=== PATIENT | male | born 1945 | race Two or more races ===

== ENCOUNTER → 2016-04-06 | Outpatient (REF) | payer MEDICARE ==
[2016-04-07 14:11] LABS: PSA % FREE 20.7 % (.); PSA FREE 0.91 ng/mL; PSA TOTAL 4.4 ng/mL (0.0-4.0)
== END ==
LOC: M SFHCCLAY 07:03
PROVIDERS: ATTEND Urology
DX: R97.20 Elevated prostate specific antigen [PSA] (principal)

== ENCOUNTER → 2016-09-13 | Outpatient (REF) | payer MEDICARE ==
[2016-09-13 11:46] LABS: ALBUMIN 3.8 GM/DL (3.2-5.2); ALBUMIN/GLOBULIN RATIO 1.27 (1.00-1.93); ALKALINE PHOSPHATASE 78 U/L (45-117); ALT/SGPT 30 U/L (12-78); ANION GAP 7 MEQ/L (8-16); AST/SGOT 16 U/L (15-37); BILIRUBIN,TOTAL 0.7 MG/DL (0.2-1.0); BLOOD UREA NITROGEN 20 MG/DL (7-18); CALCIUM LEVEL 8.6 MG/DL (8.8-10.2); CARBON DIOXIDE LEVEL 26 MEQ/L (21-32); CHLORIDE LEVEL 106 MEQ/L (98-107); CHOLESTEROL LEVEL 200 MG/DL (<200); CREATININE FOR GFR 1.04 MG/DL (0.70-1.30); GLOMERULAR FILTRATION RATE > 60.0 (>42); GLUCOSE, FASTING 116 MG/DL (83-110); POTASSIUM SERUM 3.8 MEQ/L (3.5-5.1); SODIUM LEVEL 139 MEQ/L (136-145); TOTAL PROTEIN 6.8 GM/DL (6.4-8.2); TRIGLYCERIDES LEVEL 130 MG/DL (<150)
== END ==
LOC: M SFHCCLAY 07:02
PROVIDERS: ATTEND Family Medicine
DX: I10 Essential (primary) hypertension (principal)

== ENCOUNTER → 2017-05-03 | Outpatient (CLI) | payer MEDICARE | LOC: M CLY 10:03 | DX: M25.711 Osteophyte, right shoulder (principal); M12.88 Other specific arthropathies, not elsewhere classified, other specified site; M25.511 Pain in right shoulder | CPT/HCPCS: 73030 ==

== ENCOUNTER → 2017-05-03 | Outpatient (REF) | payer MEDICARE ==
[2017-05-03 17:54] LABS: ALBUMIN 4.2 GM/DL (3.2-5.2); ALBUMIN/GLOBULIN RATIO 1.27 (1.00-1.93); ALKALINE PHOSPHATASE 74 U/L (45-117); ALT/SGPT 24 U/L (12-78); ANION GAP 7 MEQ/L (8-16); AST/SGOT 13 U/L (7-37); BILIRUBIN,TOTAL 0.7 MG/DL (0.2-1.0); BLOOD UREA NITROGEN 18 MG/DL (7-18); CALCIUM LEVEL 9.3 MG/DL (8.8-10.2); CARBON DIOXIDE LEVEL 28 MEQ/L (21-32); CHLORIDE LEVEL 105 MEQ/L (98-107); CHOLESTEROL LEVEL 249 MG/DL (<200); CHOLESTEROL RISK RATIO 2.417 (<5); CREATININE FOR GFR 1.14 MG/DL (0.70-1.30); GLOMERULAR FILTRATION RATE > 60.0 (>42); GLUCOSE, FASTING 123 MG/DL (70-100); HDL CHOLESTEROL 103 MG/DL (>40); LDL CHOLESTEROL 127.2 MG/DL (<100); NON-HDL-C 146 MG/DL; PROSTATIC SPECIFIC AG MONITOR 7.13 NG/ML (< 4.0); SODIUM LEVEL 140 MEQ/L (136-145); TOTAL PROTEIN 7.5 GM/DL (6.4-8.2); TRIGLYCERIDES LEVEL 94 MG/DL (<150)
[2017-05-03 19:12] LABS: ESTIMATED AVERAGE GLUCOSE 128 MG/DL (60-110); HEMOGLOBIN A1c 6.1 %
== END ==
LOC: M SFHCCLAY 09:52
DX: I10 Essential (primary) hypertension (principal); R97.20 Elevated prostate specific antigen [PSA]; R73.01 Impaired fasting glucose
CPT/HCPCS: 84443

== ENCOUNTER → 2017-05-16 | Outpatient (CLI) | payer MEDICARE | LOC: M RAD 09:17 | DX: M25.511 Pain in right shoulder (principal); M79.621 Pain in right upper arm | CPT/HCPCS: 73221 ==

== ENCOUNTER → 2017-07-17 | Outpatient (REF) | payer MEDICARE | LOC: M SMT 18:08 | DX: R97.20 Elevated prostate specific antigen [PSA] (principal) | CPT/HCPCS: 84154 ==

== ENCOUNTER → 2017-07-17 | Outpatient (CLI) | payer MEDICARE | LOC: M CLY 11:13 | DX: M25.561 Pain in right knee (principal); M50.30 Other cervical disc degeneration, unspecified cervical region; R93.7 Abnormal findings on diagnostic imaging of other parts of musculoskeletal system | CPT/HCPCS: 72050; 84154 ==

== ENCOUNTER → 2018-01-02 | Outpatient (CLI) | payer MEDICARE ==
[2018-01-02 12:57] LABS: ESTIMATED AVERAGE GLUCOSE 120 MG/DL (60-110); HEMOGLOBIN A1c 5.8 %
[2018-01-02 13:04] LABS: ALBUMIN 3.9 GM/DL (3.2-5.2); ALBUMIN/GLOBULIN RATIO 1.34 (1.00-1.93); ALKALINE PHOSPHATASE 78 U/L (45-117); ALT/SGPT 22 U/L (12-78); ANION GAP 7 MEQ/L (8-16); AST/SGOT 12 U/L (7-37); BILIRUBIN,TOTAL 0.7 MG/DL (0.2-1.0); BLOOD UREA NITROGEN 14 MG/DL (7-18); CALCIUM LEVEL 8.9 MG/DL (8.8-10.2); CARBON DIOXIDE LEVEL 29 MEQ/L (21-32); CHLORIDE LEVEL 106 MEQ/L (98-107); CHOLESTEROL LEVEL 211 MG/DL (<200); CHOLESTEROL RISK RATIO 2.705 (<5); CREATININE FOR GFR 1.05 MG/DL (0.70-1.30); GLOMERULAR FILTRATION RATE > 60.0 (>42); GLUCOSE, FASTING 125 MG/DL (70-100); HDL CHOLESTEROL 78 MG/DL (>40); LDL CHOLESTEROL 116 MG/DL (<100); NON-HDL-C 133 MG/DL; POTASSIUM SERUM 4.1 MEQ/L (3.5-5.1); SODIUM LEVEL 142 MEQ/L (136-145); TOTAL PROTEIN 6.8 GM/DL (6.4-8.2); TRIGLYCERIDES LEVEL 84 MG/DL (<150)
[2018-01-04 00:08] LABS: PSA % FREE 17.1 % (.); PSA FREE 1.18 ng/mL; PSA TOTAL 6.9 ng/mL (0.0-4.0)
== END ==
LOC: M LAB 11:26
DX: R73.01 Impaired fasting glucose (principal); I10 Essential (primary) hypertension; E78.2 Mixed hyperlipidemia; R97.20 Elevated prostate specific antigen [PSA]
CPT/HCPCS: 80053

== ENCOUNTER → 2018-06-13 | Outpatient (REF) | payer MEDICARE ==
[~2018-06-13] MED LIST: AMLO10TA5 PO; ASPI1TAB20 PO; FINA5TAB2 PO
[2018-06-13 18:13] LABS: HEMATOCRIT 45.3 % (42.0-52.0); HEMOGLOBIN 15.4 g/dl (13.5-17.5); MEAN CORPUSCULAR VOLUME 87.5 fl (80.0-96.0); RED BLOOD COUNT 5.18 10^6/uL (4.30-6.10); WHITE BLOOD COUNT 7.3 10^3/uL (4.0-10.0)
[2018-06-13 18:14] LABS: BASO # 0.1 10^3/uL (0.0-0.2); BASO % 0.8 % (0.0-1.0); EOS # 0.2 10^3/uL (0.0-0.50); LYMPH # 1.8 10^3/uL (1.5-4.5); LYMPH % 24.7 % (24.0-44.0); MEAN CORPUSCULAR HEMOGLOBIN 29.7 pg (27.0-33.0); MONO # 0.5 10^3/uL (0.0-0.8); MONO % 7.2 % (0.0-5.0); NEUTROPHILS # 4.8 10^3/uL (1.8-7.7); NEUTROPHILS % 65.2 % (36.0-66.0); PLATELET COUNT, AUTOMATED 238 10^3/uL (150-450)
[2018-06-13 18:43] LABS: ALBUMIN 4.3 GM/DL (3.2-5.2); ALT/SGPT 27 U/L (12-78); BILIRUBIN,TOTAL 0.5 MG/DL (0.2-1.0); BLOOD UREA NITROGEN 18 MG/DL (7-18); CALCIUM LEVEL 9.7 MG/DL (8.8-10.2); CARBON DIOXIDE LEVEL 26 MEQ/L (21-32); CHLORIDE LEVEL 106 MEQ/L (98-107); GLOMERULAR FILTRATION RATE > 60.0 (>42); GLUCOSE, FASTING 139 MG/DL (70-100); POTASSIUM SERUM 4.3 MEQ/L (3.5-5.1); SODIUM LEVEL 140 MEQ/L (136-145); TOTAL PROTEIN 7.3 GM/DL (6.4-8.2)
[2018-06-13 18:50] LABS: VITAMIN B12 LEVEL 498 PG/ML (247-911)
[2018-06-13 18:51] LABS: FOLATE 17.3 NG/ML (>5.4)
== END ==
LOC: M SFHCCLAY 11:08
PROVIDERS: ATTEND Family Medicine
DX: I10 Essential (primary) hypertension (principal); R20.0 Anesthesia of skin; R20.2 Paresthesia of skin; I73.9 Peripheral vascular disease, unspecified

== ENCOUNTER → 2018-06-23 | Outpatient (CLI) | payer MEDICARE ==
--- NOTE | 2018-06-23 14:11 | REP ---
BILATERAL LOWER EXTREMITY DUPLEX DOPPLER ARTERIAL EVALUATION: Real-time ultrasound evaluation and duplex Doppler interrogation of bilateral lower extremity arterial systems is performed. LAWSON on the right is 0.9 and left 1.1. Mild to moderate scattered atherosclerotic plaquing and narrowing is seen bilaterally. There is a more focal degree of moderate plaquing in the mid right superficial femoral artery with mild elevation of peak systolic velocity with similar findings in the distal left superficial femoral artery possibly indicating mild stenosis at these locations. Triphasic and biphasic waveforms are seen throughout the bilateral lower extremity arterial systems. Right Peak Left Peak Systolic Velocity Systolic velocity Common femoral artery 101.2 cm/s 112.6 cm/s Profunda 91.4 cm/s 97.6 cm/s Proximal SFA 116.2 cm/s 160.9 cm/s Mid SFA 132.3 cm/s 115.0 cm/s Distal SFA 114.5 cm/s 152.3 cm/s Popliteal 66.6 cm/s 72.9 cm/s Proximal JOY 41.8 cm/s 49.7 cm/s Tibial peroneal trunk 60.9 cm/s 62.6 cm/s Proximal MAIL MACHINE OPERATOR 44.0 cm/s 70.5 cm/s Distal MAIL MACHINE OPERATOR 74.3 cm/s 61.0 cm/s Distal JOY 18.3 cm/s 42.4 cm/s IMPRESSION: Mild to moderate plaquing and narrowing bilateral lower extremity arterial systems with suspected mild stenosis of the mid right superficial femoral artery and distal left superficial femoral artery. Electronically Signed by Gustavo Herrera MD 06/23/2018 05:42 P
== END ==
LOC: M RAD 11:19
PROVIDERS: ATTEND Family Medicine
DX: I73.9 Peripheral vascular disease, unspecified (principal)

== ENCOUNTER → 2018-06-24 | Outpatient (REF) | payer MEDICARE | LOC: M LAB REF 15:06 | PROVIDERS: ATTEND Surgery | DX: L72.3 Sebaceous cyst (principal) ==

== ENCOUNTER → 2018-10-20 | Outpatient (REF) | payer MEDICARE ==
[~2018-10-20] MED LIST changes: +ASPI-524 PO; -ASPI1TAB20 PO
[2018-10-20 16:45] LABS: BASO % 0.5 % (0.0-1.0); EOS # 0.3 10^3/uL (0.0-0.50); EOS % 4.2 % (0.0-3.0); HEMATOCRIT 44.2 % (42.0-52.0); LYMPH # 1.7 10^3/uL (1.5-4.5); LYMPH % 26.7 % (24.0-44.0); MEAN CORPUSCULAR HEMOGLOBIN 30.5 pg (27.0-33.0); MEAN CORPUSCULAR HGB CONC 33.9 g/dl (32.0-36.5); MONO # 0.6 10^3/uL (0.0-0.8); MONO % 8.8 % (0.0-5.0); NEUTROPHILS # 3.9 10^3/uL (1.8-7.7); NEUTROPHILS % 59.6 % (36.0-66.0); PLATELET COUNT, AUTOMATED 187 10^3/uL (150-450); RED BLOOD COUNT 4.91 10^6/uL (4.30-6.10); WHITE BLOOD COUNT 6.5 10^3/uL (4.0-10.0)
[2018-10-20 16:59] LABS: ALBUMIN 3.7 GM/DL (3.2-5.2); ALT/SGPT 25 U/L (12-78); BILIRUBIN,TOTAL 0.6 MG/DL (0.2-1.0); BLOOD UREA NITROGEN 16 MG/DL (7-18); CARBON DIOXIDE LEVEL 26 MEQ/L (21-32); CHLORIDE LEVEL 108 MEQ/L (98-107); CHOLESTEROL LEVEL 179 MG/DL (<200); CHOLESTEROL RISK RATIO 2.386 (<5); CREATININE FOR GFR 1.03 MG/DL (0.70-1.30); GLOMERULAR FILTRATION RATE > 60.0 (>42); GLUCOSE, FASTING 125 MG/DL (70-100); HDL CHOLESTEROL 75 MG/DL (>40); LDL CHOLESTEROL 87 MG/DL (<100); NON-HDL-C 104 MG/DL; PROSTATIC SPECIFIC AG MONITOR 8.25 NG/ML (< 4.00); SODIUM LEVEL 141 MEQ/L (136-145); TOTAL PROTEIN 6.9 GM/DL (6.4-8.2); TRIGLYCERIDES LEVEL 83 MG/DL (<150)
[2018-10-20 17:13] LABS: HEMOGLOBIN A1c 6.7 %
== END ==
LOC: M SFHCCLAY 09:38
PROVIDERS: ATTEND Family Medicine
DX: I10 Essential (primary) hypertension (principal); R73.01 Impaired fasting glucose; E78.2 Mixed hyperlipidemia; R97.20 Elevated prostate specific antigen [PSA]; S20.36 Insect bite (nonvenomous) of front wall of thorax; W57.XXXS Bitten or stung by nonvenomous insect and other nonvenomous arthropods, sequela

== ENCOUNTER 2018-10-24 09:17 | Day surgery (SDC) | payer MEDICARE ==
[~2018-10-24] VITALS: Ht 170.2 cm; Wt 87.1 kg
[~2018-10-24 09:17] MED LIST changes: +LR 1,000 ML IV ONE; +OMEP-218 PO; +ORAL0.1P; +VALS1TAB67 PO
[2018-10-24] MEDS ORDERED: PROPOFOL 200 MG/20 ML VIAL As Ordered ONE ×3 (09:45→11:13)
[2018-10-24] MEDS ORDERED: fentaNYL 100 MCG/2 ML INJECTION (J3010) As Ordered ONE ×4 (09:45→12:25)
[2018-10-24] MEDS ORDERED: LIDOCAINE 2% INJ 100 MG/5 ML SDV (FOR ANES.) As Ordered ONE ×2 (09:45→11:11)
[2018-10-24] MEDS ORDERED: ROCURONIUM BROMIDE 50 MG/5 ML VIAL As Ordered ONE ×2 (09:45→11:11)
[2018-10-24] MEDS ORDERED: dexameTHASONE 4 MG/ML 1ML VIAL (J1100) As Ordered ONE ×2 (09:46→11:11)
[2018-10-24] MEDS ORDERED: ONDANSETRON 4MG/2ML VIAL (J2405) As Ordered ONE ×2 (09:46→11:12)
[2018-10-24] MEDS ORDERED: BUPIVACAINE/EPIN 0.25% 30 ML VIAL As Ordered ONE (10:01)
[2018-10-24] MEDS ORDERED: LABETALOL HCL 100 MG/20 ML VIAL As Ordered ONE (10:50)
[2018-10-24] MEDS ORDERED: hydrALAZINE INJ 20 MG/ML VIAL As Ordered ONE (11:08)
[2018-10-24] MEDS ORDERED: MIDAZOLAM INJ 2 MG/2 ML VIAL (J2250) As Ordered ONE (11:11)
[2018-10-24] MEDS ORDERED: SUGAMMADEX SODIUM 500 MG/5 ML VIAL (BRIDION) As Ordered ONE (11:13)
[2018-10-24] MEDS ORDERED: ACETAMINOPHEN 1000MG 100ML IV BTL (OFIRMEV) (J0131 PER 10MG) As Ordered ONE (11:38)
[2018-10-24] MEDS ORDERED: oxyCODONE 5MG TAB As Ordered ONE (12:25)
[2018-10-24] MEDS: fentaNYL 100 MCG/2 ML INJECTION (J3010) IV PRN ×4 (12:30→12:58)
[2018-10-24] MEDS: oxyCODONE 5MG TAB PO PRN ×2 (12:30→13:00)
[2018-10-24] MEDS ORDERED: MORPHINE 10 MG/ML 1ML VIAL (J2270) IV PRN (12:45)
[2018-10-24] MEDS ORDERED: LR 1,000 ML IV SCH (12:45)
[2018-10-24] MEDS ORDERED: ONDANSETRON 4MG/2ML VIAL (J2405) IV PRN (12:45)
[2018-10-24] MEDS ORDERED: NORCO, ANEXSIA 5/325MG TABLET (HYDROcodone/ACETAMINOPHEN) PO PRN (12:45)
[2018-10-24] MEDS ORDERED: KETOROLAC 30 MG/ML VIAL (J1885) As Ordered ONE (12:46)
[2018-10-24] MEDS ORDERED: KETOROLAC 30 MG/ML VIAL (J1885) IV PRN (13:00)
[2018-10-24 14:15] VITALS: BP 148/81
--- NOTE | 2018-10-27 19:38 | RO ---
DATE OF PROCEDURE: 10/24/2018 PREOPERATIVE DIAGNOSIS: Umbilical hernia. POSTOPERATIVE DIAGNOSIS: Umbilical hernia. PROCEDURE: Robotic umbilical hernia repair. SURGEON: Dr. Leon HEALTH EDUCATION ASSISTANT: None. ANESTHESIA: General. ESTIMATED BLOOD LOSS: 5. COMPLICATIONS: None. INDICATIONS FOR PROCEDURE: The patient is a 73-year-old male who presents with a large umbilical hernia. This was identified incidentally during a previous office visit. After I have explained to him what it was, he started to recognize symptoms from it and requested to have it repaired. Recommendation was to proceed with laparoscopic repair. However, he read about robotic and asked about having that completed. I agreed to do that for him. Risks and benefits of the procedure not limited but including bleeding, infection, hernia formation, hernia recurrence, damage to surrounding structures, need for further surgery were discussed in detail with the patient. Informed was obtained and procedure was planned. PROCEDURE: The patient was brought back to room #7. After sufficient sedation, the abdomen was sterilely prepped and draped. Next, a time-out was done to confirm proper patient and proper procedure. Following that a 5 cm incision made in left lower quadrant, Veress needle was inserted and the abdomen was insufflated to 15 mmHg. Next, the Veress needle was removed and an 8 mm robotic port was used to gain access to the abdomen. Once the abdomen was entered, another 8 mm port was placed in left midabdomen and another in the left lower quadrant. The left side of the abdomen was elevated up in the air slightly about a 5-6 degrees. Next, the robot was docked to the ports. Next, from the console the pre peritoneum was entered along the left side of the hernia sac. It was carefully dissected free including the entire hernia sac all along the preperitoneal plane. Once this was all completely dissected free, the defect in the fascia was closed primarily with a #0 Stratafix suture. Once that was completed, a Parietex composite mesh was cut to size and placed over top of that, sutured in place to the fascia with a #2-0 V-Loc suture. The pre peritoneum was then brought back over top of the mesh and sutured in place also with another #2-0 V-Loc. Once that was done, the abdomen was desufflated. Skin incisions were closed with #4-0 Vicryl subcuticular sutures. The abdomen was cleaned and dried. Steri-Strips, 4 x 4 and tape were applied, thus ending procedure.
== END 2018-10-24 14:20 | disposition home or self-care (01) ==
LOC: M SDC 09:17
PROVIDERS: ATTEND Surgery
DX: K42.9 Umbilical hernia without obstruction or gangrene (principal); I10 Essential (primary) hypertension; Z88.8 Allergy status to other drugs, medicaments and biological substances; Z79.899 Other long term (current) drug therapy; N40.0 Benign prostatic hyperplasia without lower urinary tract symptoms
CPT/HCPCS: 49652; C1781; J0131; J0690; J1100; J1885; J2405; J3010

== ENCOUNTER → 2019-02-05 | Outpatient (CLI) | payer MEDICARE ==
[~2019-02-05] MED LIST changes: -ASPI-524 PO; +ASPI325T57 PO; -LR 1,000 ML IV ONE
--- NOTE | 2019-02-05 13:16 | REP ---
Clinical: Periumbilical pain/palpable mass. Technique: Real time eckert scale and color evaluation using linear high frequency transducer. Findings: Ultrasound examination of the periumbilical region demonstrates no hernia. Underlying the area of concern, a small hyperechoic ovoid areas are identified in the subcutaneous tissue to the left of the umbilicus measuring 9 x 6 x 9 mm and 9 x 5 x 7 mm and to the right of the umbilicus measuring 6 x 5 x 6 mm. Findings are nonspecific. Differential diagnosis would include small lipomas and granulation tissue related to umbilical hernia repair. Impression: Few small hyperechoic ovoid areas in the subcutaneous tissues are avascular, likely benign, but otherwise nonspecific. Differential diagnosis would include small forming lipomas as well as subtle granulation tissue possibly related to prior hernia repair. Electronically Signed by Ace Calix MD 02/05/2019 01:08 P
== END ==
LOC: M RAD 12:19
PROVIDERS: ATTEND Surgery
DX: R10.33 Periumbilical pain (principal)

== ENCOUNTER → 2019-04-08 | Outpatient (REF) | payer MEDICARE ==
[2019-04-08 14:09] LABS: ALBUMIN 3.9 GM/DL (3.2-5.2); BILIRUBIN,TOTAL 0.6 MG/DL (0.2-1.0); CALCIUM LEVEL 9.5 MG/DL (8.8-10.2); CREATININE FOR GFR 1.26 MG/DL (0.70-1.30); GLOMERULAR FILTRATION RATE 59.4 (>42); POTASSIUM SERUM 4.6 MEQ/L (3.5-5.1); PROSTATIC SPECIFIC AG MONITOR 10.3 NG/ML (< 4.00); TOTAL PROTEIN 6.9 GM/DL (6.4-8.2)
[2019-04-08 15:27] LABS: HEMOGLOBIN A1c 6.4 %
== END ==
LOC: M SFHCCLAY 07:32
PROVIDERS: ATTEND Family Medicine
DX: R73.01 Impaired fasting glucose (principal); I10 Essential (primary) hypertension; R97.20 Elevated prostate specific antigen [PSA]

== ENCOUNTER → 2020-06-28 | Outpatient (REF) | payer MEDICARE, MEDICAID ==
[~2020-06-28] MED LIST changes: -AMLO10TA5 PO; +AMLO1TAB25 PO
[2020-06-28 11:09] LABS: BASO # 0.1 10^3/uL (0.0-0.2); BASO % 0.8 % (0.0-1.0); EOS # 0.3 10^3/uL (0.0-0.5); EOS % 3.8 % (0.0-3.0); HEMATOCRIT 46.2 % (42.0-52.0); HEMOGLOBIN 15.6 g/dl (13.5-17.5); LYMPH # 2.2 10^3/uL (1.5-5.0); LYMPH % 29.9 % (24.0-44.0); MEAN CORPUSCULAR HEMOGLOBIN 30.4 pg (27.0-33.0); MEAN CORPUSCULAR HGB CONC 33.8 g/dl (32.0-36.5); MEAN CORPUSCULAR VOLUME 90.1 fl (80.0-96.0); MONO # 0.6 10^3/uL (0.0-0.8); MONO % 8.3 % (2.0-8.0); NEUTROPHILS # 4.2 10^3/uL (1.5-8.5); NEUTROPHILS % 56.9 % (36.0-66.0); PLATELET COUNT, AUTOMATED 191 10^3/uL (150-450); RED BLOOD COUNT 5.13 10^6/uL (4.30-6.10); WHITE BLOOD COUNT 7.4 10^3/uL (4.0-10.0)
[2020-06-28 11:30] LABS: HEMOGLOBIN A1c 6.2 %
[2020-06-28 11:44] LABS: CHOLESTEROL RISK RATIO 2.467 (<5)
[2020-06-28 11:47] LABS: ALT/SGPT 30 U/L (12-78); BILIRUBIN,TOTAL 0.9 MG/DL (0.2-1.0); BLOOD UREA NITROGEN 17 MG/DL (7-18); CALCIUM LEVEL 9.5 MG/DL (8.8-10.2); CARBON DIOXIDE LEVEL 29 MEQ/L (21-32); CHLORIDE LEVEL 105 MEQ/L (98-107); GLOMERULAR FILTRATION RATE > 60.0 (>42); GLUCOSE, FASTING 149 MG/DL (70-100); POTASSIUM SERUM 4.3 MEQ/L (3.5-5.1); SODIUM LEVEL 139 MEQ/L (136-145)
== END ==
LOC: M SFHCCLAY 09:19
PROVIDERS: ATTEND Family Medicine
DX: R73.01 Impaired fasting glucose (principal); I10 Essential (primary) hypertension; E78.2 Mixed hyperlipidemia

== ENCOUNTER → 2020-10-27 | Outpatient (REF) | payer MEDICARE, MEDICAID ==
[2020-10-27 17:04] LABS: ALBUMIN 3.9 GM/DL (3.2-5.2); ALT/SGPT 27 U/L (12-78); BILIRUBIN,TOTAL 0.9 MG/DL (0.2-1.0); BLOOD UREA NITROGEN 19 MG/DL (7-18); CALCIUM LEVEL 9.4 MG/DL (8.8-10.2); CARBON DIOXIDE LEVEL 25 MEQ/L (21-32); CHLORIDE LEVEL 109 MEQ/L (98-107); CREATININE FOR GFR 1.05 MG/DL (0.70-1.30); GLOMERULAR FILTRATION RATE > 60.0 (>42); GLUCOSE, FASTING 136 MG/DL (70-100); POTASSIUM SERUM 4.1 MEQ/L (3.5-5.1); SODIUM LEVEL 142 MEQ/L (136-145)
[2020-10-27 18:02] LABS: HEMOGLOBIN A1c 6.2 %
== END ==
LOC: M SFHCCLAY 10:16
PROVIDERS: ATTEND Family Medicine
DX: R73.01 Impaired fasting glucose (principal)

== ENCOUNTER → 2021-02-20 | Outpatient (REF) | payer MEDICARE ==
[2021-02-21 11:42] LABS: BASO % 0.5 % (0.0-1.0); EOS # 0.4 10^3/uL (0.0-0.5); EOS % 5.1 % (0.0-3.0); HEMATOCRIT 45.7 % (42.0-52.0); HEMOGLOBIN 15.1 g/dl (13.5-17.5); LYMPH # 2.5 10^3/uL (1.5-5.0); LYMPH % 30.9 % (24.0-44.0); MEAN CORPUSCULAR HEMOGLOBIN 30.1 pg (27.0-33.0); MONO # 0.7 10^3/uL (0.0-0.8); NEUTROPHILS # 4.5 10^3/uL (1.5-8.5); PLATELET COUNT, AUTOMATED 217 10^3/uL (150-450); RED BLOOD COUNT 5.02 10^6/uL (4.30-6.10); WHITE BLOOD COUNT 8.1 10^3/uL (4.0-10.0)
[2021-02-21 12:07] LABS: HEMOGLOBIN A1c 5.8 %
[2021-02-21 12:28] LABS: ALT/SGPT 32 U/L (12-78); BILIRUBIN,TOTAL 0.6 MG/DL (0.2-1.0); BLOOD UREA NITROGEN 13 MG/DL (7-18); CALCIUM LEVEL 9.1 MG/DL (8.8-10.2); CARBON DIOXIDE LEVEL 29 MEQ/L (21-32); CHLORIDE LEVEL 106 MEQ/L (98-107); CREATININE FOR GFR 1.01 MG/DL (0.70-1.30); GLOMERULAR FILTRATION RATE > 60.0 (>42); GLUCOSE, FASTING 115 MG/DL (70-100); POTASSIUM SERUM 4.9 MEQ/L (3.5-5.1); SODIUM LEVEL 139 MEQ/L (136-145)
== END ==
LOC: M SFHCCLAY 13:59
PROVIDERS: ATTEND Family Medicine
DX: I10 Essential (primary) hypertension (principal); R73.01 Impaired fasting glucose; R97.20 Elevated prostate specific antigen [PSA]

== ENCOUNTER → 2021-08-15 | Outpatient (CLI) | payer MEDICARE ==
[~2021-08-15] MED LIST changes: +OMEP-173 PO; -OMEP-218 PO
== END ==
LOC: M CLY 15:39
PROVIDERS: ATTEND Family Medicine
DX: R05.9 Cough, unspecified (principal)

== ENCOUNTER → 2021-08-15 | Outpatient (REF) | payer MEDICARE ==
[2021-08-15 18:25] LABS: BASO # 0.1 10^3/uL (0.0-0.2); BASO % 0.6 % (0.0-1.0); EOS # 0.1 10^3/uL (0.0-0.5); EOS % 1.5 % (0.0-3.0); HEMATOCRIT 45.5 % (42.0-52.0); HEMOGLOBIN 15.6 g/dl (13.5-17.5); LYMPH # 2.2 10^3/uL (1.5-5.0); LYMPH % 25.6 % (24.0-44.0); MEAN CORPUSCULAR HEMOGLOBIN 30.4 pg (27.0-33.0); MEAN CORPUSCULAR HGB CONC 34.3 g/dl (32.0-36.5); MEAN CORPUSCULAR VOLUME 88.7 fl (80.0-96.0); MONO # 0.6 10^3/uL (0.0-0.8); MONO % 7.5 % (2.0-8.0); NEUTROPHILS # 5.5 10^3/uL (1.5-8.5); NEUTROPHILS % 64.5 % (36.0-66.0); PLATELET COUNT, AUTOMATED 218 10^3/uL (150-450); RED BLOOD COUNT 5.13 10^6/uL (4.30-6.10); WHITE BLOOD COUNT 8.6 10^3/uL (4.0-10.0)
[2021-08-15 18:48] LABS: ALBUMIN 4.4 GM/DL (3.2-5.2); BILIRUBIN,TOTAL 0.8 MG/DL (0.2-1.0); CALCIUM LEVEL 10.3 MG/DL (8.8-10.2); CHOLESTEROL RISK RATIO 2.943 (<5); CREATININE FOR GFR 1.28 MG/DL (0.70-1.30); GLOMERULAR FILTRATION RATE 57.9 (>42); MAGNESIUM LEVEL 2.4 MG/DL (1.8-2.4); POTASSIUM SERUM 4.4 MEQ/L (3.5-5.1); TOTAL PROTEIN 7.6 GM/DL (6.4-8.2)
[2021-08-15 19:32] LABS: HEMOGLOBIN A1c 6.3 %
== END ==
LOC: M SFHCCLAY 15:14
PROVIDERS: ATTEND Family Medicine
DX: R73.01 Impaired fasting glucose (principal); E78.2 Mixed hyperlipidemia; K21.9 Gastro-esophageal reflux disease without esophagitis; I10 Essential (primary) hypertension; R05.9 Cough, unspecified

== ENCOUNTER → 2022-01-09 | Outpatient (REF) | payer MEDICARE, MEDICAID | LOC: M SFHCCLAY 14:57 | PROVIDERS: ATTEND Physician Assistant | DX: R09.81 Nasal congestion (principal) ==

== ENCOUNTER → 2022-02-13 | Outpatient (REF) | payer MEDICARE, MEDICAID ==
[2022-02-13 17:18] LABS: BASO # 0.1 10^3/uL (0.0-0.2); BASO % 0.9 % (0.0-1.0); EOS # 0.3 10^3/uL (0.0-0.5); EOS % 3.4 % (0.0-3.0); HEMATOCRIT 46.5 % (42.0-52.0); HEMOGLOBIN 15.5 g/dl (13.5-17.5); LYMPH # 2.7 10^3/uL (1.5-5.0); LYMPH % 33.1 % (24.0-44.0); MEAN CORPUSCULAR HEMOGLOBIN 30.5 pg (27.0-33.0); MEAN CORPUSCULAR HGB CONC 33.3 g/dl (32.0-36.5); MEAN CORPUSCULAR VOLUME 91.5 fl (80.0-96.0); MONO # 0.7 10^3/uL (0.0-0.8); NEUTROPHILS # 4.5 10^3/uL (1.5-8.5); NEUTROPHILS % 54.2 % (36.0-66.0); PLATELET COUNT, AUTOMATED 186 10^3/uL (150-450); RED BLOOD COUNT 5.08 10^6/uL (4.30-6.10); WHITE BLOOD COUNT 8.2 10^3/uL (4.0-10.0)
[2022-02-13 17:43] LABS: PROSTATIC SPECIFIC AG MONITOR 8.32 NG/ML (< 4.00)
[2022-02-13 17:45] LABS: MAGNESIUM LEVEL 1.9 MG/DL (1.8-2.4)
[2022-02-13 17:47] LABS: ALBUMIN 3.8 G/DL (3.2-5.2); ALKALINE PHOSPHATASE 65 U/L (46-116); ALT/SGPT 28 U/L (7.0-40); AST/SGOT 19 U/L (<34); BILIRUBIN,TOTAL 0.7 MG/DL (0.3-1.2); BLOOD UREA NITROGEN 17 MG/DL (9-23); CALCIUM LEVEL 10.1 MG/DL (8.3-10.6); CARBON DIOXIDE LEVEL 29 MMOL/L (20-31); CHLORIDE LEVEL 103 MMOL/L (98-107); FOLATE 16.37 NG/ML (>5.4); GLOMERULAR FILTRATION RATE > 60.0 (>42); GLUCOSE, FASTING 137 MG/DL (74-106); SODIUM LEVEL 141 MMOL/L (136-145)
[2022-02-13 17:50] LABS: VITAMIN B12 LEVEL 571 PG/ML (211-911)
[2022-02-13 18:33] LABS: HEMOGLOBIN A1c 5.9 % (4.0-6.0)
== END ==
LOC: M SFHCCLAY 10:42
PROVIDERS: ATTEND Family Medicine
DX: R97.20 Elevated prostate specific antigen [PSA] (principal); G62.9 Polyneuropathy, unspecified; R73.01 Impaired fasting glucose; K21.9 Gastro-esophageal reflux disease without esophagitis; I10 Essential (primary) hypertension

== ENCOUNTER → 2023-04-10 | Outpatient (REF) | payer MEDICARE, MEDICAID ==
[2023-04-10 16:42] LABS: HEMATOCRIT 47.5 % (42.0-52.0); HEMOGLOBIN 16.2 g/dl (13.5-17.5); MEAN CORPUSCULAR HGB CONC 34.1 g/dl (32.0-36.5); PLATELET COUNT, AUTOMATED 203 10^3/uL (150-450); RED BLOOD COUNT 5.22 10^6/uL (4.30-6.10); WHITE BLOOD COUNT 7.4 10^3/uL (4.0-10.0)
[2023-04-10 17:10] LABS: PROSTATIC SPECIFIC AG MONITOR 7.54 NG/ML (< 4.00)
[2023-04-10 17:13] LABS: ALBUMIN 3.8 G/DL (3.2-5.2); ALKALINE PHOSPHATASE 70 U/L (46-116); ALT/SGPT 27 U/L (7.0-40); AST/SGOT 17 U/L (<34); BILIRUBIN,TOTAL 1.2 MG/DL (0.3-1.2); BLOOD UREA NITROGEN 19 MG/DL (9-23); CALCIUM LEVEL 9.8 MG/DL (8.3-10.6); CARBON DIOXIDE LEVEL 31 MMOL/L (20-31); CHLORIDE LEVEL 105 MMOL/L (98-107); CHOLESTEROL LEVEL 255 MG/DL (<200); CHOLESTEROL RISK RATIO 2.97 (<5); CREATININE FOR GFR 1.04 MG/DL (0.70-1.30); GLOMERULAR FILTRATION RATE > 60.0 (>42); GLUCOSE, FASTING 158 MG/DL (74-106); HDL CHOLESTEROL 85.7 MG/DL (>40); LDL CHOLESTEROL 148.3 MG/DL (<100); NON-HDL-C 169.3 MG/DL; POTASSIUM SERUM 4.6 MMOL/L (3.5-5.1); SODIUM LEVEL 140 MMOL/L (136-145); TOTAL PROTEIN 6.8 G/DL (5.7-8.2); TRIGLYCERIDES LEVEL 105 MG/DL (<150)
[2023-04-10 17:16] LABS: HEMOGLOBIN A1c 6.1 % (4.0-6.0)
== END ==
LOC: M SFHCCLAY 11:00
PROVIDERS: ATTEND Family Medicine
DX: I10 Essential (primary) hypertension (principal); R73.01 Impaired fasting glucose; E78.2 Mixed hyperlipidemia; K21.9 Gastro-esophageal reflux disease without esophagitis; R97.20 Elevated prostate specific antigen [PSA]

== ENCOUNTER → 2024-04-28 | Outpatient (REF) | payer MEDICARE, MEDICAID ==
[2024-04-28 17:14] LABS: ALKALINE PHOSPHATASE 66 U/L (40-129); ALT/SGPT 29 U/L (7.0-40); AST/SGOT 15 U/L (<34); BILIRUBIN,TOTAL 0.9 MG/DL (0.3-1.2); BLOOD UREA NITROGEN 15 MG/DL (9-23); CALCIUM LEVEL 9.7 MG/DL (8.3-10.6); CARBON DIOXIDE LEVEL 27 MMOL/L (20-31); CHLORIDE LEVEL 105 MMOL/L (98-107); CHOLESTEROL LEVEL 254 MG/DL (<200); CHOLESTEROL RISK RATIO 2.78 (<5); CREATININE FOR GFR 0.91 MG/DL (0.70-1.30); GLOMERULAR FILTRATION RATE > 60.0 (>35); GLUCOSE, FASTING 161 MG/DL (74-106); HDL CHOLESTEROL 91.1 MG/DL (>40); LDL CHOLESTEROL 132.5 MG/DL (<100); MAGNESIUM LEVEL 1.9 MG/DL (1.8-2.4); NON-HDL-C 162.9 MG/DL; POTASSIUM SERUM 3.9 MMOL/L (3.5-5.1); SODIUM LEVEL 142 MMOL/L (136-145); TOTAL PROTEIN 7.1 G/DL (5.7-8.2); TRIGLYCERIDES LEVEL 152 MG/DL (<150)
[2024-04-28 17:26] LABS: HEMATOCRIT 44.8 % (42.0-52.0); HEMOGLOBIN 15.6 g/dl (13.5-17.5); MEAN CORPUSCULAR HEMOGLOBIN 31.1 pg (27.0-33.0); MEAN CORPUSCULAR HGB CONC 34.8 g/dl (32.0-36.5); MEAN CORPUSCULAR VOLUME 89.2 fl (80.0-96.0); PLATELET COUNT, AUTOMATED 197 10^3/uL (150-450); RED BLOOD COUNT 5.02 10^6/uL (4.30-6.10); WHITE BLOOD COUNT 7.6 10^3/uL (4.0-10.0)
== END ==
LOC: M SFHCCLAY 09:11
PROVIDERS: ATTEND Family Medicine
DX: I10 Essential (primary) hypertension (principal); R73.01 Impaired fasting glucose; E78.2 Mixed hyperlipidemia; K21.9 Gastro-esophageal reflux disease without esophagitis